=== PATIENT | female | born 1995 | race Hispanic/Latino ===

== ENCOUNTER 2022-03-16 14:07 | Day surgery (SDC) | payer OTHER ==
[2022-03-16] MEDS ORDERED: hydrALAZINE 20 MG/ML VIAL SLOW IVP PRN (15:57)
[2022-03-16] MEDS ORDERED: Lactated Ringer's 1,000 ML IV SCH (16:00)
[2022-03-16 17:58] VITALS: BMI 43.9
== END 2022-03-16 19:13 | disposition home or self-care (01) ==
LOC: CSHLD/OP 14:07
PROVIDERS: ATTEND Family Medicine
DX: O36.8130 Decreased fetal movements, third trimester, not applicable or unspecified (principal); Z3A.38 38 weeks gestation of pregnancy; O36.8330 Maternal care for abnormalities of the fetal heart rate or rhythm, third trimester, not applicable or unspecified; O99.283 Endocrine, nutritional and metabolic diseases complicating pregnancy, third trimester; E03.9 Hypothyroidism, unspecified; O99.513 Diseases of the respiratory system complicating pregnancy, third trimester; J45.909 Unspecified asthma, uncomplicated; O99.343 Other mental disorders complicating pregnancy, third trimester; F32.A Depression, unspecified; Z79.899 Other long term (current) drug therapy
CPT/HCPCS: 76819; 96360; 96361; 99282